=== PATIENT | male | born 1980 | race Caucasian/White ===

== ENCOUNTER 2017-02-27 17:01 | Emergency (ER) | payer OTHER ==
[~2017-02-27] VITALS: Ht 188 cm; Wt 64.0 kg
[2017-02-27 17:04] VITALS: Ht 188 cm; Wt 64.0 kg
--- NOTE | 2017-02-27 17:57 | ERD ---
ER Documentation Chief Complaint Date/Time DATE: 02/27/17 TIME: 17:55 Chief Complaint RT FOOT PAIN /SWELLING S/P FALL TODAY HPI This is a 37-year-old male who presents the emergency department today complaining of right foot pain after falling down some stairs outside of his house earlier today. Patient states that he is unable to ambulate. States that he has a previous history of fracture in that foot. States he has not taken medication for the pain. Denies any fevers or chills. ROS All systems reviewed and are negative except as per history of present illness. Medications Home Meds Active Scripts Naproxen* (Naprosyn*) 500 Mg Tablet, 500 MG PO BID Y for PAIN AND/OR INFLAMMATION, #30 TAB Prov:FAN ANGELES PA-C 02/27/17 Hydrocodone/Acetaminophen ([place] 5-325 Tablet) 1 Each Tablet, 1 TAB PO Q6H Y for PAIN, #12 TAB Prov:FAN ANGELES PA-C 02/27/17 PMhx/Soc Medical and Surgical Hx: pt denies Medical Hx, pt denies Surgical Hx Hx Alcohol Use: Yes (DAILY) Hx Substance Use: No Hx Tobacco Use: Yes (1/2 PACK) Smoking Status: Current every day smoker Physical Exam Vitals Vital Signs Date Time Temp Pulse Resp B/P Pulse Ox O2 Delivery O2 Flow Rate FiO2 02/27/17 17:04 98.7 69 18 132/76 97 Physical Exam Const: NAD Head: Atraumatic Eyes: Normal Conjunctiva ENT: Normal External Ears, Nose and Mouth. Neck: Full range of motion..~ No meningismus. Resp: Clear to auscultation bilaterally Cardio: Regular rate and rhythm, no murmurs Skin: No petechiae or rashes MSk: Right foot with no obvious deformity. Moderate effusion over lateral aspect of the foot third fourth and fifth metatarsals with tenderness. Full active range of motion of ankle. Nontender medial and lateral malleolus. Pulses 2+. Distal neurovascularly intact. Neur: Awake and alert Psych: Normal Mood and Affect Results 24 hrs Current Medications Medications (Trade) Dose Ordered Sig/[place] Route PRN Reason Start Time Stop Time Status Last Admin Dose Admin Acetaminophen/ Hydrocodone Bitart ([place] (5/325)) 1 tab ONCE ONCE PO 02/27/17 18:00 02/27/17 18:01 DC 02/27/17 18:06 DIAGNOSTIC IMAGING REPORT Patient: EL CLAY : 1980 Age: 37 Sex: M MR #: [id number] DOS: 02/27/17 0000 Ordering MD: FAN ANGELES PA-C Location: [facility] Room/Bed: PROCEDURE: XR Foot. CLINICAL INDICATION: Fall down stairs TECHNIQUE: Three views of the right foot are available for review. COMPARISON: None available FINDINGS: There is an oblique, minimally displaced, intra-articular fracture at the base of the fifth metatarsal. The remaining osseous structures are intact. The articular spaces are preserved. There is overlying soft tissue swelling. IMPRESSION: 1. Oblique, minimally displaced, intra-articular fracture at the base of the fifth metatarsal. 2. Lateral soft tissue swelling. RPTAT: QQ .Brant Espinoza MD, MD Date Time Electronically viewed and signed by .Brant Espinoza MD, MD on 02/27/2017 18:24 .d/ CC: FAN ANGELES PA-C Procedures/MDM This a 37-year-old male who presents the emergency department today for right foot pain after falling down some stairs earlier today. Patient does have a history of previous trauma however on physical exam there is a significant amount of swelling of the dorsal aspect of his foot he has tenderness over his lateral metatarsals. Given this I did obtain images. Per the radiology report images of the right foot show an oblique minimally displaced intra-articular fracture at the base of the fifth metatarsal. There is overlying soft tissue swelling. Patient symptoms at this time is consistent with foot fracture. Patient was given [place] here in the emergency department. He will be given a prescription for [place] and Naprosyn for home. He was pllaced in a splint. He was distally neurovascularly intact pre-and post splint application. He was also given crutches to help ambulate. At this time the patient is stable for discharge and outpatient management. Patient should follow up with their PCP in the next 1-2 days. They may return to the emergency department sooner for any persistent or worsening of symptoms. Patient understood and agreed with the plan. Departure Diagnosis: Primary Impression: Foot fracture, right Encounter type: initial encounter Fracture type: closed Qualified Code: S92.901A - Closed fracture of right foot, initial encounter Condition: Fair FAN ANGELES PA-C Feb 27, 2017 17:57
[2017-02-27] MEDS ORDERED: HYDROCODONE/APAP (5/325) TAB PO ONE (18:00)
--- NOTE | 2017-02-27 18:24 | RADRPT ---
PROCEDURE: XR Foot. CLINICAL INDICATION: Fall down stairs TECHNIQUE: Three views of the right foot are available for review. COMPARISON: None available FINDINGS: There is an oblique, minimally displaced, intra-articular fracture at the base of the fifth metatars al. The remaining osseous structures are intact. The articular spaces are preserved. There is overly ing soft tissue swelling. IMPRESSION: 1. Oblique, minimally displaced, intra-articular fracture at the base of the fifth metatarsal. 2. Lateral soft tissue swelling. RPTAT: QQ .Brant Espinoza MD, MD Date Time Electronically viewed and signed by .Brant Espinoza MD, MD on 02/27/2017 18:24 .d/
[2017-02-27] MEDS ORDERED: NAPR-260 PO (18:37)
[2017-02-27] MEDS ORDERED: HYDR-906 PO (18:37)
== END 2017-02-27 19:54 | disposition home or self-care (01) ==
LOC: FTE 17:01
DX: S92.531A Displaced fracture of distal phalanx of right lesser toe(s), initial encounter for closed fracture (principal); F17.210 Nicotine dependence, cigarettes, uncomplicated; W10.8XXA Fall (on) (from) other stairs and steps, initial encounter; Y92.89 Other specified places as the place of occurrence of the external cause
CPT/HCPCS: 29515; 73630; Z7502; Z7610